=== PATIENT | male | born 1985 | race Caucasian/White ===

== ENCOUNTER 2022-07-27 22:19 | Emergency (ER) | payer SELFPAY | END 2022-07-27 23:39 | disposition home or self-care (01) | LOC: NAV ERS 22:19 | DX: S62.614A Displaced fracture of proximal phalanx of right ring finger, initial encounter for closed fracture (principal); S60.454A Superficial foreign body of right ring finger, initial encounter; W22.01XA Walked into wall, initial encounter ==